=== PATIENT | male | born 1965 | race Caucasian/White ===

== ENCOUNTER 2017-11-06 14:05 | Emergency (ER) | payer OTHER ==
[~2017-11-06] VITALS: Ht 175.3 cm; Wt 65.8 kg
[2017-11-06] MEDS ORDERED: KEFLEX500 M1 PO (14:46)
[2017-11-06 16:08] VITALS: BP 120/80
== END 2017-11-06 16:09 | disposition home or self-care (01) ==
LOC: ER 14:05
DX: S51.811A Laceration without foreign body of right forearm, initial encounter (principal); X58.XXXA Exposure to other specified factors, initial encounter; Y93.89 Activity, other specified; Y92.89 Other specified places as the place of occurrence of the external cause; Y99.8 Other external cause status